=== PATIENT | male | born 1975 ===

== ENCOUNTER → 2016-06-28 | Outpatient (CLI) | payer BC, OTHER ==
[~2016-06-28] MED LIST: CITA10TA4 PO; MTR600X PO; OXYC-57 PO
== END | disposition home or self-care (01) ==
LOC: EDSEX → MERGE 11:11 → C.LABSPEC 11:11
PROVIDERS: ATTEND Urology
DX: R39.15 Urgency of urination (principal); R35.0 Frequency of micturition; R39.9 Unspecified symptoms and signs involving the genitourinary system

== ENCOUNTER → 2016-11-08 | Outpatient (CLI) | payer BC, OTHER ==
--- NOTE | 2016-11-08 11:46 | DIAGNOSTIC IMAGING REPORT ---
PELVIC COMPLETE NON OB HISTORY: 40 years-old Female ABNORMAL UTERINE AND VAGINAL BLEEDING COMPARISON: None available TECHNIQUE: Multiple real-time static images of the deep pelvic structures were obtained transabdominally assessing grayscale appearance, color and spectral flow FINDINGS: Patient refused the transvaginal component of the study. Uterus measures 11.9 x 6.1 x 5.6 cm. Endometrium measures 0.4 cm. There are multiple uterine fibroids noted, one of which is submucosal, 1.3 cm. Intramural fibroid along the right aspect of the uterus is seen measuring up to 1.6 cm. The left ovary measures 3.6 x 3.7 x 2.3 cm. Ovoid hypoechoic structure at the left ovary is seen, 1.9 x 1.6 x 1.5 cm suggesting a dominant follicle. Arterial inflow is seen within the left ovary. Right ovary measures 3.2 x 4.0 x 2.0 cm with follicles noted. Arterial inflow is documented within the right ovary. No significant free pelvic fluid. IMPRESSION: 1. No evidence of ovarian torsion. 2. Dominant follicle of the left ovary, 1.9 cm. 3. Multiple uterine fibroids with at least one being in a submucosal location measuring up to 1.3 cm. The above report was generated using voice recognition software. It may contain grammatical, syntax or spelling errors. Electronically signed by: Milan Lennon M.D. 11/08/2016 11:44 AM Dictated Date/Time: 11/08/2016 11:41 AM
== END | disposition home or self-care (01) ==
LOC: C.ULTRBC 10:26 → MERGE 10:26
PROVIDERS: ATTEND Nurse Practitioner Family
DX: N93.8 Other specified abnormal uterine and vaginal bleeding (principal); D25.9 Leiomyoma of uterus, unspecified

== ENCOUNTER → 2016-11-20 | Outpatient (CLI) | payer BC, OTHER | END | disposition home or self-care (01) | LOC: MERGE 17:46 → C.PATHSPEC 17:46 | PROVIDERS: ATTEND Obstetrics & Gynecology | DX: N93.9 Abnormal uterine and vaginal bleeding, unspecified (principal) ==

== ENCOUNTER 2016-11-25 19:56 | Emergency (ER) | payer BC, OTHER ==
[~2016-11-25] VITALS: Ht 165.1 cm; Wt 59.0 kg
[2016-11-25 20:25] VITALS: TEMP 36.7; Ht 165.1 cm; Wt 59.0 kg
[2016-11-25] MEDS ORDERED: CITA10TA4 PO (20:43)
[2016-11-25 21:45] LABS: BASO % 1.1 %; BASO ABS # 0.06 K/uL (0-0.2); EOS % 1.7 %; HEMATOCRIT 36.4 % (37-47); IG% 0.2 %; LYMPH % 41.1 %; LYMPH ABS # 2.23 K/uL (1.2-3.4); MEAN CELL VOLUME 83.1 fL (80-100); MEAN CORPUSCULAR HGB CONC 31.3 g/dl (32-36); MONO % 6.3 %; NEUT % 49.6 %; PLATELET COUNT 238 K/uL (130-400); RED BLOOD COUNT 4.38 M/uL (4.2-5.4); WHITE BLOOD COUNT 5.42 K/uL (4.8-10.8)
[2016-11-25 21:58] LABS: PARTIAL THROMBOPLASTIN RATIO 1.1; PROTHROMBIN TIME (PATIENT) 10.7 SECONDS (9.0-12.0)
[2016-11-25 22:02] LABS: BUN/CREATININE RATIO 15.4 (10-20); CALCIUM 8.7 mg/dl (8.5-10.1); CREATININE 0.83 mg/dl (0.60-1.20); POTASSIUM 3.8 mmol/L (3.5-5.1)
[2016-11-25 22:05] LABS: ALB/GLOB RATIO 1.1 (0.9-2)
--- NOTE | 2016-11-25 22:54 | DIAGNOSTIC IMAGING REPORT ---
PELVIC ULTRASOUND CLINICAL HISTORY: h/o DUB, heavy bleeding COMPARISON STUDY: Pelvic ultrasound November 08, 2016. TECHNIQUE: Transabdominal and transvaginal sonography of the pelvis was performed. FINDINGS: The uterus measures 10.1 x 5.8 x 7.2 cm. Endometrium measures 8 mm in thickness. Multiple mixed echogenicity uterine lesion suggest fibroids, the largest of which is a 1.9 cm right fundal fibroid. A 1.4 x 1.2 x 1.1 cm lesion adjacent to the left aspect of the endometrium within the uterine body suggests a submucosal fibroid. The right ovary measures 3.7 x 2.8 x 2.8 cm and contains a 2.6 cm complex cyst. This was not present on exam of November 08, 2016 and suggests a hemorrhagic cyst. The left ovary is normal, measuring 2.5 x 2.2 x 2.2 cm. There was color flow within each ovary. There was no free fluid. IMPRESSION: 1. Several suspected small uterine fibroids, including a 1.4 cm submucosal fibroid, as described above. 2. 2.6 cm complex right ovarian cyst likely reflecting a hemorrhagic cyst. 3. No sonographic evidence of ovarian torsion. Electronically signed by: Alton Montez M.D. 11/25/2016 10:53 PM Dictated Date/Time: 11/25/2016 10:49 PM
[2016-11-25 22:56] LABS: ANISOCYTOSIS PRESENT; COMPLETE YES; HYPOCHROMIA PRESENT; OVALOCYTES 1+
[2016-11-25 23:05] LABS: URINE APPEARANCE CLEAR (CLEAR); URINE BILIRUBIN NEG (NEG); URINE COLOR YELLOW; URINE EPITHELIAL CELL AUTO 0-5 /lpf (0-5); URINE NITRITE NEG (NEG); UROBILINOGEN NEG (NEG)
--- NOTE | 2016-11-25 23:13 | EMERGENCY ROOM VISIT NOTE ---
History First contact with patient: 21:01 Chief Complaint: VAGINAL BLEEDING Stated Complaint: EXCESSIVE HEAVY BLEEDING/CLOTTING (MENSTRUAL) History of Present Illness The patient is a 40 year old female who presents to the Emergency Room with complaints of heavy menstrual bleeding that started on Sunday, or 3 days ago. The patient has been using a full tampon and 1 maxi pad per hour for the vaginal bleeding. She reports that the bleeding has slowed down somewhat see evening. She currently is not taking any NSAIDs. The patient reports that she is currently under the management of Dr. Vela for dysfunctional uterine bleeding. She was scheduled to have an ultrasound performed on Sunday, but called and canceled the appointment because of her menses. Reports that she has large dark colored blood clots, except when she is sitting on the commode. She also reports mild left lower back pain. She denies any significant weakness , nausea or vomiting. The patient reports that she has had anemia secondary to dysfunctional uterine bleeding. At this point, the patient denies any significant abdominal pain. Review of Systems HEENT: Denies dizziness, visual problems, hearing loss, tinnitus. Denies difficulty swallowing or oral lesions. PULMONARY: Denies cough, shortness of breath, sputum production or hemoptysis. CARDIOVASCULAR: Denies chest pain, palpitations, dyspnea on exertion, orthopnea or peripheral edema. GASTROINTESTINAL: Denies diarrhea, constipation, nausea, vomiting, or abdominal pain. GENITOURINARY: Denies dysuria, frequency, urgency or nocturia. See history of present illness for history of the social uterine bleeding. NEUROLOGIC: Denies history of epilepsy, CVA, TIA or chronic headaches. MUSCULOSKELETAL: Denies history of joint tenderness/swelling. SKIN: Denies rashes or lesions. PSYCHIATRIC: Denies history of depression or mental illness. ENDOCRINE: Denies history of diabetes or thyroid disorders. Past Medical/Surgical History Medical Problems: (1) Abnormal Uterine And Vaginal Bleeding, Unspecified (2) Leiomyoma Of Uterus, Unspecified Surgical Problems: (1) No history of previous surgery Family History Unremarkable Social History Smoking Status: Never Smoker Alcohol Use: none Marital Status: Housing Status: lives with family Occupation Status: employed Current/Historical Medications Scheduled Citalopram Hydrobromide (Citalopram Hydrobromide), 10 MG PO DAILY Physical Exam Vital Signs Date Time Temp Pulse Resp B/P (MAP) Pulse Ox O2 Delivery O2 Flow Rate FiO2 8/12/17 20:25 36.7 73 18 122/74 100 Room Air Physical Exam CONSTITUTIONAL: Healthy and well nourished. Alert and oriented X 3 with positive affect. She does not appear in any acute distress on exam. HEENT: Normocephalic, atraumatic. Pupils equal, round and reactive. No scleral icterus or conjunctival injection/pallor. OROPHARYNX: No posterior frontal erythema or tonsillar hypertrophy. NECK: Full active range of motion without discomfort. RESPIRATORY: Clear to auscultation bilaterally with no wheezing, crackles, rhonchi or stridor. CARDIOVASCULAR: Regular rate and rhythm with no murmurs, rubs or gallops. GASTROINTESTINAL: Bowel sounds present in all quadrants. The patient has minimal suprapubic tenderness to palpation. Negative McBurney's point tenderness. Negative CVA tenderness. No rigidity, guarding or rebound. GENITOURINARY: Bimanual and speculum exam were performed with a female nurse elevator mechanic apprentice present. Normal external genitalia. No active bleeding from the vagina. Speculum exam shows dark blood within the vaginal vault. There is no protrusions or significant active bleeding from the cervical os. Bimanual exam shows negative cervical motion tenderness and no obvious adnexal masses. MUSCULOSKELETAL: Full range of motion of all joints without discomfort. INTEGUMENTARY: No rash or other significant dermatologic conditions noted. HEMATOLOGIC: No ecchymosis or petechiae. NEUROLOGIC: No focal neurologic deficits noted. Medical Decision & Procedures ER Provider Diagnostic Interpretation: Pelvic and transvaginal ultrasound shows the following: PELVIC ULTRASOUND CLINICAL HISTORY: h/o DUB, heavy bleeding COMPARISON STUDY: Pelvic ultrasound November 08, 2016. TECHNIQUE: Transabdominal and transvaginal sonography of the pelvis was performed. FINDINGS: The uterus measures 10.1 x 5.8 x 7.2 cm. Endometrium measures 8 mm in thickness. Multiple mixed echogenicity uterine lesion suggest fibroids, the largest of which is a 1.9 cm right fundal fibroid. A 1.4 x 1.2 x 1.1 cm lesion adjacent to the left aspect of the endometrium within the uterine body suggests a submucosal fibroid. The right ovary measures 3.7 x 2.8 x 2.8 cm and contains a 2.6 cm complex cyst. This was not present on exam of November 08, 2016 and suggests a hemorrhagic cyst. The left ovary is normal, measuring 2.5 x 2.2 x 2.2 cm. There was color flow within each ovary. There was no free fluid. IMPRESSION: 1. Several suspected small uterine fibroids, including a 1.4 cm submucosal fibroid, as described above. 2. 2.6 cm complex right ovarian cyst likely reflecting a hemorrhagic cyst. 3. No sonographic evidence of ovarian torsion. Laboratory Results 11/25/16 21:30 Red Blood Count 4.38, Mean Corpuscular Volume 83.1, Mean Corpuscular Hemoglobin 26.0, Mean Corpuscular Hemoglobin Concent 31.3, Mean Platelet Volume 10.0, Neutrophils (%) (Auto) 49.6, Lymphocytes (%) (Auto) 41.1, Monocytes (%) (Auto) 6.3, Eosinophils (%) (Auto) 1.7, Basophils (%) (Auto) 1.1, Neutrophils # (Auto) 2.69, Lymphocytes # (Auto) 2.23, Monocytes # (Auto) 0.34, Eosinophils # (Auto) 0.09, Basophils # (Auto) 0.06 11/25/16 21:30 Test 11/25/16 21:30 11/25/16 22:20 White Blood Count 5.42 K/uL (4.8-10.8) Red Blood Count 4.38 M/uL (4.2-5.4) Hemoglobin 11.4 g/dL (12.0-16.0) Hematocrit 36.4 % (37-47) Mean Corpuscular Volume 83.1 fL (80-100) Mean Corpuscular Hemoglobin 26.0 pg (25-34) Mean Corpuscular Hemoglobin Concent 31.3 g/dl (32-36) Platelet Count 238 K/uL (130-400) Mean Platelet Volume 10.0 fL (7.4-10.4) Neutrophils (%) (Auto) 49.6 % Lymphocytes (%) (Auto) 41.1 % Monocytes (%) (Auto) 6.3 % Eosinophils (%) (Auto) 1.7 % Basophils (%) (Auto) 1.1 % Neutrophils # (Auto) 2.69 K/uL (1.4-6.5) Lymphocytes # (Auto) 2.23 K/uL (1.2-3.4) Monocytes # (Auto) 0.34 K/uL (0.11-0.59) Eosinophils # (Auto) 0.09 K/uL (0-0.5) Basophils # (Auto) 0.06 K/uL (0-0.2) RDW Standard Deviation 68.1 fL (36.4-46.3) RDW Coefficient of Variation 22.3 % (11.5-14.5) Immature Granulocyte % (Auto) 0.2 % Immature Granulocyte # (Auto) 0.01 K/uL (0.00-0.02) Hypochromasia PRESENT Anisocytosis PRESENT Ovalocytes 1+ Prothrombin Time 10.7 SECONDS (9.0-12.0) Prothromb Time International Ratio 1.0 (0.9-1.1) Activated Partial Thromboplast Time 27.3 SECONDS (21.0-31.0) Partial Thromboplastin Ratio 1.1 Anion Gap 5.0 mmol/L (3-11) Est Creatinine Clear Calc Drug Dose 80.3 ml/min Estimated GFR () 101.5 Estimated GFR (Non- 87.6 BUN/Creatinine Ratio 15.4 (10-20) Calcium Level 8.7 mg/dl (8.5-10.1) Total Bilirubin 0.2 mg/dl (0.2-1) Aspartate Amino Transf (AST/SGOT) 39 U/L (15-37) Alanine Aminotransferase (ALT/SGPT) 23 U/L (12-78) Alkaline Phosphatase 31 U/L (45-117) Total Protein 7.3 gm/dl (6.4-8.2) Albumin 3.9 gm/dl (3.4-5.0) Globulin 3.4 gm/dl (2.5-4.0) Albumin/Globulin Ratio 1.1 (0.9-2) Urine Test NEG (NEG) The above labs were reviewed. Hemoglobin is 11.4. Platelet count is also normal. ED Course Patient history and physical exam were performed. Nurse's notes were reviewed. Vital signs were reviewed and were normal. The patient is not tachycardic or hypertensive. She is also afebrile. Review of prior medical records shows that the patient did have a pelvic ultrasound performed on 11/08/16, which was approximately 3 weeks ago. That ultrasound showed multiple uterine fibroids with at least one being in a subacute is a location and measuring up to 1.3 cm. There was no evidence of ovarian torsion, and a dominant follicle of the left ovary measuring 1.9 cm was noted. Because of the patient's heavy bleeding per patient, I did suggest checking labs again, performing an ultrasound and pelvic exam. IV access was established , and labs were drawn. The patient refused any analgesics. Pelvic ultrasound shows persistent uterine fibroids and a new right ovarian cyst, possibly hemorrhagic. Speculum and bimanual exam does not show any active bleeding or tissue within the cervical os. The patient's hemoglobin is stable, and much higher than her last hemoglobin of 7. At this point, the patient was instructed to follow-up with Dr. Vela for further management. She was instructed to return to the emergency department for any uncontrollable vaginal bleeding, vomiting, nausea, palpitations, lightheadedness, fever or other concerning symptoms. The patient was happy with plan of care, and denied any pain at the time of discharge. Medical Decision The patient presents to the emergency department with complaint of heavy vaginal bleeding. Her pelvic exam today does not show any active bleeding. The patient is currently hemodynamically stable. Ultrasound shows a new right complex ovarian cyst, however I do not feel that this is the cause of her heavy bleeding. At this point, I do feel that she is safe for outpatient management. Medication Reconcilliation Current Medication List: was personally reviewed by me Blood Pressure Screening Patient's blood pressure: Normal blood pressure Impression Primary Impression: Dysfunctional uterine bleeding Additional Impressions: Right ovarian cyst Uterine fibroid Departure Information Referrals Mackenzie Dixon, C.R.N.P. (PCP) Patient Instructions My [facility] Problem Qualifiers Additional Impressions: Uterine fibroid Uterine leiomyoma location: unspecified location Qualified Codes: D25.9 - Leiomyoma of uterus, unspecified
[2016-11-25 23:14] LABS: MANUAL MICROSCOPIC REQUIRED? NO; REVIEW REQ? NO
[2016-11-25 23:35] VITALS: BP 120/73; PULSE 63; O2SAT 100
[2017-01-11] MEDS ORDERED: OXYC-57 PO (07:40)
[2017-01-11] MEDS ORDERED: MTR600X PO (07:40)
== END 2016-11-25 23:35 | disposition home or self-care (01) ==
LOC: C.EDB 20:01 → MERGE 20:01 → C.EDB 23:35
DX: N93.8 Other specified abnormal uterine and vaginal bleeding (principal); N83.201 Unspecified ovarian cyst, right side; D25.9 Leiomyoma of uterus, unspecified

== ENCOUNTER → 2017-01-11 | Day surgery (SDC) | payer BC, OTHER ==
[~2017-01-11] VITALS: Ht 165.1 cm; Wt 60.0 kg
[~2017-01-11] MED LIST changes: +ATROPINE SULFATE 0.1 MG/ML 5ML SYR IV PRN; +DEXAMETHASONE SOD INJ 4 MG/ML VIAL ONE; +EpHEDrine SULFATE INJ 50 MG/ML AMP IV PRN; +FENTANYL CITRATE INJ 50 MCG/1 ML 2 ML VIAL ONE; +KETOROLAC TROMETHAMINE 30 MG/ML VIAL ONE; +LACTATED RINGER'S 1000ML 1,000 ML IV SCH; +LIDOCAINE HCL 2% 2 ML VIAL (20MG/ML) ONE; +MIDAZOLAM HCL 1 MG/ML 2ML VIAL ONE; +ONDANSETRON INJ 2 MG/ML 2 ML VIAL IV PRN; +ONDANSETRON INJ 2 MG/ML 2 ML VIAL ONE; +PROMETHAZINE HCL INJ 6.25 MG in SODIUM CHLORIDE 0.9% 50ML 50 ML IV PRN; +PROPOFOL IV EMULSION 10 MG/ML 20 ML VIAL IV ONE; +SODIUM CHLORIDE 0.9% 1000ML 1,000 ML IV SCH
[2017-01-11 06:31] VITALS: Ht 165.1 cm; Wt 60.0 kg
--- NOTE | 2017-01-11 06:59 | History & Physical Bridge - SC ---
H&P Re-Evaluation Bridge Note: I have examined the patient, reviewed the History & Physical and in the interval since the performance of the History & Physical I have noted the following changes of clinical significance: No changes noted
--- NOTE | 2017-01-11 07:00 | Discharge Instructions ---
Discharge Instructions Date of Service Jan 11, 2017. Admission Reason for Admission: Menorrhagia, Leiomyoma Discharge Discharge Diagnosis / Problem: menorrhagia Discharge Goals Goal(s): Routine recovery after surgery Activity Recommendations Activity Limitations: per Instructions/Follow-up section . Instructions / Follow-Up Instructions / Follow-Up ACTIVITY RECOMMENDATIONS: * Avoid tampons, douching, hot tubs, pools, and intercourse until bleeding has stopped. * May shower as usual. * No strenuous activity for 24-48 hours. After 24-48 hours, you may do anything you feel like doing (driving and sports are okay). SPECIAL CARE INSTRUCTIONS: Special Diet: * Mild nausea may occur in the immediate post-operative period. * Take clear liquids such as tea, cola or bouillon until all nausea has subsided; you may then resume your normal diet. Special Care: * Light bleeding and vaginal spotting can last from a few days to 3-4 weeks. Call your doctor if bleeding becomes heavier than the heaviest part of your period. * Check your temperature twice a day for one week. If it goes above 100.4 degrees Fahrenheit (38.0 Celsius), notify your doctor. * Call your doctor's office for an appointment for 6 weeks after your surgery. FOLLOW-UP VISIT: Call your doctor's office for an appointment for 6 weeks after your surgery. Current Hospital Diet Patient's current hospital diet: Discharge Diet Recommended Diet: Regular Diet Pending Studies Studies pending at discharge: no Medical Emergencies . Who to Call and When: Medical Emergencies: If at any time you feel your situation is an emergency, please call 911 immediately. . Non-Emergent Contact Non-Emergency issues call your: [employer] . . "Provider Documentation" section prepared by Joselito Briggs. . VTE Core Measure Inpt VTE Proph given/why not?: Treatment not indicated
--- NOTE | 2017-01-11 07:38 | [facility] Post Operative Brief Note ---
Immediate Operative Summary Operative Date Jan 11, 2017. Pre-Operative Diagnosis Uterine fibroid, menorrhagia Post-Operative Diagnosis Same as pre-op Procedure(s) Performed Hysteroscopy, D+C, endometrial ablation, hysteroscopic myomectomy Surgeon Dr. Briggs Slope Runner Surgeon(s) None Estimated Blood Loss 20ml Findings small SM fibroid Specimens A.Endometrial currettings B.Endometrial fibroid Drains None Anesthesia General Complication(s) None Disposition Recovery Room / PACU
--- NOTE | 2017-01-11 08:00 | OPERATIVE REPORT ---
DATE OF OPERATION: 01/11/2017 PREOPERATIVE DIAGNOSIS: Uterine fibroid, menorrhagia. POSTOPERATIVE DIAGNOSIS: Same. PROCEDURE: Hysteroscopy, D&C, endometrial ablation, hysteroscopic myomectomy. SURGEON: Joselito Briggs MD STITCH CLEANER: None. ESTIMATED BLOOD LOSS: 20 mL. FINDINGS: Small submucosal fibroid. SPECIMENS: Endometrial curettings and SM fibroid. DRAINS: None. ANESTHETIC: General. COMPLICATIONS: None. DISPOSITION: Recovery room. Total losses of 3% sorbitol 375 mL. DESCRIPTION OF PROCEDURE: The patient was taken to the operating room, prepped and draped in dorsal lithotomy position in [facility]. Bladder drained. Uterus examined and found to be anteverted and somewhat enlarged. A weighted speculum placed in the vagina, single tooth tenaculum on the anterior tip of the cervix. Cervix then carefully and methodically dilated starting at #13 dilator progressing to a #31 dilator. On inspection with a 6 mm hysteroscope, I viewed the cavity, there did appear to be a small submucosal fibroid. Both tubal ostia were visualized. There was no sign of perforation and no other pathology seen. We then placed a 10 mm operative hysteroscope using normal saline as base solution using settings of 200 cut 100 coag. We then resected the fibroid anteriorly with the loop, taking care to only remove the fibroid down to the level of the myometrium and removed all of the intracavitary portion of it. We then switched to the roller bar and then ablated the rest of the endometrium starting at the tubal ostial regions and then continuing down to the endocervical os, so that the entire endometrium was ablated. At this stage, there was no sign of perforation, and bleeding was minimal. The patient was given IV Toradol. Instruments removed from the cervix and vagina. Sponge and instrument counts correct. I attest to the content of the Intraoperative Record and any orders documented therein. Any exceptions are noted below. MTDD
[2017-01-11] MEDS: FENTANYL CITRATE INJ 50 MCG/1 ML 2 ML VIAL IV PRN ×2 (08:13→08:49)
[2017-01-11 09:03] VITALS: TEMP 36.7
[2017-01-11 09:27] VITALS: BP 116/81; PULSE 56; O2SAT 100
--- NOTE | 2017-01-11 09:28 | Anesthesia Progress Nt - [facility] ---
Anesthesia Post Op Note Date & Time Jan 11, 2017 at 09:28 Vital Signs Pain Intensity: 1 Vital Signs Past 12 Hours Date Time Temp Pulse Resp B/P (MAP) Pulse Ox O2 Delivery O2 Flow Rate FiO2 01/11/17 09:03 36.7 60 16 125/80 (95) 99 Room Air 01/11/17 08:52 54 14 100 01/11/17 08:52 54 14 01/11/17 08:51 116/74 01/11/17 08:50 36.7 54 16 116/74 100 Room Air 01/11/17 08:47 50 13 01/11/17 08:47 52 13 100 01/11/17 08:46 117/66 01/11/17 08:42 51 14 100 01/11/17 08:42 51 14 01/11/17 08:41 114/69 01/11/17 08:37 51 25 01/11/17 08:37 51 25 100 01/11/17 08:36 128/65 01/11/17 08:32 50 14 01/11/17 08:32 50 14 100 01/11/17 08:31 134/81 01/11/17 08:27 54 16 100 01/11/17 08:27 54 16 01/11/17 08:26 130/82 01/11/17 08:22 52 19 01/11/17 08:22 52 19 100 01/11/17 08:21 136/85 01/11/17 08:17 53 18 100 01/11/17 08:17 53 18 01/11/17 08:16 131/82 01/11/17 08:12 56 17 01/11/17 08:12 63 17 01/11/17 08:11 122/71 01/11/17 08:07 64 12 100 01/11/17 08:07 64 12 01/11/17 08:06 146/71 01/11/17 08:02 56 15 100 01/11/17 08:02 55 15 01/11/17 08:01 140/81 01/11/17 07:57 56 16 100 01/11/17 07:57 56 16 01/11/17 07:56 140/76 01/11/17 07:53 139/72 01/11/17 07:52 36.5 65 12 139/72 100 Mask 6 01/11/17 06:34 36.5 71 16 122/81 (95) 99 Room Air Notes Mental Status: alert / awake / arousable, participated in evaluation Pt Amnestic to Procedure: Yes Nausea / Vomiting: adequately controlled Pain: adequately controlled Airway Patency, RR, SpO2: stable & adequate BP & HR: stable & adequate Hydration State: stable & adequate Anesthetic Complications: no major complications apparent
== END | disposition home or self-care (01) ==
LOC: X.SURG 06:08
PROVIDERS: ATTEND Obstetrics & Gynecology
DX: N92.0 Excessive and frequent menstruation with regular cycle (principal); D25.0 Submucous leiomyoma of uterus; N93.9 Abnormal uterine and vaginal bleeding, unspecified; D64.9 Anemia, unspecified; Z83.3 Family history of diabetes mellitus; Z81.8 Family history of other mental and behavioral disorders